=== PATIENT | male | born 1955 | race Caucasian/White ===

== ENCOUNTER → 2018-04-28 09:59 | Outpatient (CLI) | payer OTHER, SELFPAY ==
[2018-04-28 11:53] LABS: Triglycerides 230 mg/dL
== END ==
PROVIDERS: Family Provider Student in an Organized Health Care Education/Training Program; PCP Student in an Organized Health Care Education/Training Program; Visit Provider Urology
DX: Z12.5 Encounter for screening for malignant neoplasm of prostate (principal)
CPT/HCPCS: 36415; 84478

== ENCOUNTER → 2018-12-02 08:17 | Outpatient (CLI) | payer OTHER, SELFPAY ==
[2018-11-20 14:22] VITALS: BMI 30.1
--- NOTE | 2018-12-02 08:37 | EKG12_ITS ---
Test Reason : HYPERTENSION Blood Pressure : / mmHG Vent. Rate : 070 BPM Atrial Rate : 070 BPM P-R Int : 180 ms QRS Dur : 114 ms QT Int : 398 ms P-R-T Axes : 053 -05 028 degrees QTc Int : 429 ms Normal sinus rhythm Cannot rule out Inferior infarct , age undetermined Abnormal ECG Confirmed by SHANON BALLESTEROS, TRINY ([id number]), design editor CONNER ROCA ([id number]) on 12/05/2018 8:52:59 AM Referred By: Rick Cobos Confirmed By:TRINY CLAUDIO MD
[2018-12-02 09:16] LABS: Absolute Lymphocyte Count 1.41 X10^3/ul (0.83-4.51); Basophil# 0.06 X10^3/uL; Basophil% 1.1 % (0-1); Eosinophil# 0.37 X10^3/uL; Hematocrit 46.1 % (40-54); Hemoglobin 15.4 g/dl (13.0-16.5); Lymphocyte # 1.41 X10^3/ul (4.0); Lymphocyte % 26.7 % (19-41); Mean Corp Hgb Conc 33.4 g/gl (32-36); Mean Corpuscular Volume 92.9 fL (80-94); Mean Platelet Vol. 9.9 fl (6.2-12.0); Monocyte# 0.43 X10^3/uL; Monocyte% 8.1 % (0-10); Neutrophil # 3.01 X10^3/uL (2.7-7.7); Neutrophil % 57.1 % (47-70); Platelet Count 207 K/mm3 (150-450); RBC Distribution Width CV 12.3 % (11.6-14.6); RBC Distribution Width SD 41.1 fl (35.1-43.9); Red Blood Count 4.96 M/mm3 (4.6-6.2); White Blood Count 5.3 K/mm3 (4.4-11.0)
[2018-12-02 09:17] LABS: POSITIVE COUNT NO; POSITIVE DIFFERENTIAL NO; POSITIVE MORPHOLOGY NO
[2018-12-02 09:56] LABS: ALB/GLOB Ratio 1.1 RATIO (0.9-2.4); AST(SGOT) 20 U/L (15-37); Alanine Aminotransfer ALT/SGPT 29 U/L (16-61); Albumin, Serum 3.5 g/dL (3.2-5.0); Alkaline Phosphatase 72 U/L (45-117); Anion Gap 11 (5-15); BUN 23 mg/dL (7-18); BUN/Creat Ratio 20.2 RATIO (10-20); Calcium,Total 8.6 mg/dL (8.5-10.1); Chloride 108 mmol/L (98-107); Cholesterol 188 mg/dL (200); Creatinine, Serum 1.14 mg/dL (0.70-1.30); EST Glomerular Filtration Rate 69 mL/min (>60); Est Glom Filt Rate - Afr Amer 84 mL/min (>60); Globulin 3.3 g/dL (2.2-4.2); Glucose 93 mg/dL (74-106); High Density Lipoprotein 42 mg/dL; PSA,Total - Annual Screen 0.89 ng/mL (0.00-4.00); Protein, Total 6.8 g/dL (6.4-8.2); Sodium Level 146 mmol/L (136-145); Triglycerides 147 mg/dL; Very Low Density Lipoprotein 29 mg/dL (5-40)
== END ==
PROVIDERS: Family Provider Internal Medicine; PCP Internal Medicine; Referring Provider Internal Medicine; Visit Provider Internal Medicine
DX: I10 Essential (primary) hypertension (principal); N40.0 Benign prostatic hyperplasia without lower urinary tract symptoms
CPT/HCPCS: 36415; 80053; 80061; 83036; 84153; 85025; 93005; G0103

== ENCOUNTER → 2020-04-13 08:32 | Outpatient (CLI) | payer OTHER, SELFPAY ==
[2020-04-13 08:02] VITALS: BMI 28.6
[2020-04-13 12:41] LABS: Absolute Lymphocyte Count 1.57 X10^3/uL (0.83-4.51); Absolute Neutrophil Count 3.5 X10^3/uL (2.0-7.7); Basophil# 0.09 X10^3/uL; Basophil% 1.5 % (0-1); Eosinophil# 0.41 X10^3/uL; Eosinophils% 6.7 % (0-5); Hematocrit 46.3 % (40-54); Hemoglobin 15.1 g/dL (13.0-16.5); Lymphocyte # 1.57 X10^3/ul (4.0); Lymphocyte % 25.5 % (19-41); Mean Corp Hgb Conc 32.6 g/dL (32-36); Mean Corpuscular Hgb 31.3 pg (27.0-32.0); Mean Corpuscular Volume 96.1 fL (80-94); Monocyte# 0.53 X10^3/uL; Monocyte% 8.6 % (0-10); NRBC Flagged by Analyzer 0 % (0-5); Neutrophil # 3.53 X10^3/uL (2.7-7.7); Neutrophil % 57.4 % (47-70); Platelet Count 219 K/mm3 (150-450); RBC Distribution Width CV 13.3 % (11.6-14.6); RBC Distribution Width SD 46.9 fl (35.1-43.9); Red Blood Count 4.82 M/mm3 (4.6-6.2); White Blood Count 6.2 K/mm3 (4.4-11.0)
[2020-04-13 13:13] LABS: ALB/GLOB Ratio 1.1 RATIO (0.9-2.4); AST(SGOT) 18 U/L (15-37); Alanine Aminotransfer ALT/SGPT 28 U/L (16-61); Albumin, Serum 3.7 g/dL (3.2-5.0); Alkaline Phosphatase 76 U/L (45-117); Anion Gap 4 (5-15); BUN 22 mg/dL (7-18); Calcium,Total 8.7 mg/dL (8.5-10.1); Chloride 108 mmol/L (98-107); Cholesterol 204 mg/dL (200); Creatinine, Serum 1.05 mg/dL (0.70-1.30); EST Glomerular Filtration Rate 76 mL/min (>60); Est Glom Filt Rate - Afr Amer 92 mL/min (>60); Globulin 3.4 g/dL (2.2-4.2); Glucose 100 mg/dL (74-106); High Density Lipoprotein 35 mg/dL; PSA,Total - Annual Screen 1.41 ng/mL (0.00-4.00); Potassium 4.3 mmol/L (3.5-5.1); Protein, Total 7.1 g/dL (6.4-8.2); Sodium Level 141 mmol/L (136-145); Thyroid Stim Hormone (TSH) 1.85 uIU/mL (0.358-3.74); Triglycerides 303 mg/dL; Very Low Density Lipoprotein 61 mg/dL (5-40)
== END ==
PROVIDERS: PCP Internal Medicine; Referring Provider Nurse Practitioner Family; Visit Provider Nurse Practitioner Family
DX: I10 Essential (primary) hypertension (principal); N40.0 Benign prostatic hyperplasia without lower urinary tract symptoms
CPT/HCPCS: 36415; 80053; 80061; 84153; 84443; 85025; G0103

== ENCOUNTER → 2020-10-07 09:09 | Outpatient (CLI) | payer OTHER, SELFPAY ==
[2020-10-07 08:32] VITALS: BMI 29.1
--- NOTE | 2020-10-07 10:51 | RAD_ITS ---
STUDY: X-RAY CHEST REASON FOR EXAM: Male, 65 years old. cough TECHNIQUE: PA and lateral COMPARISON: 09/30/2012 FINDINGS: The lungs are clear and expanded. There is no demonstrated pleural abnormality. Normal size heart. Normal mediastinum and dany. Normal visualized pulmonary arteries. Normal visualized aortic arch and descending thoracic aorta. Dorsal spine and shoulders demonstrate minor degenerative change Normal visualized ribs, and clavicles. There is no demonstrated abnormality of the visualized soft tissue structures of the upper abdomen. No significant changes since prior exam RAD/Chest PA and Lateral IMPRESSION: No acute cardiopulmonary pathology. Electronically Signed: De Simmons MD at 17:08 EST , Service support ,
[2020-10-07 12:41] LABS: Cholesterol 214 mg/dL (200); High Density Lipoprotein 49 mg/dL; Triglycerides 141 mg/dL; Very Low Density Lipoprotein 28 mg/dL (5-40)
== END ==
PROVIDERS: PCP Internal Medicine; Referring Provider Nurse Practitioner Family; Visit Provider Nurse Practitioner Family
DX: R05 Cough (principal); E78.5 Hyperlipidemia, unspecified
CPT/HCPCS: 36415; 71046; 80061

== ENCOUNTER → 2021-03-07 09:25 | Outpatient (CLI) | payer OTHER, SELFPAY ==
[2021-03-07 08:59] VITALS: BMI 29.1
[2021-03-07 12:31] LABS: Absolute Lymphocyte Count 1.32 X10^3/uL (0.83-4.51); Absolute Neutrophil Count 3.6 X10^3/uL (2.0-7.7); Basophil# 0.07 X10^3/uL; Basophil% 1.2 % (0-1); Eosinophil# 0.28 X10^3/uL; Eosinophils% 4.9 % (0-5); Hematocrit 47.2 % (40-54); Hemoglobin 15.6 g/dL (13.0-16.5); Lymphocyte # 1.32 X10^3/ul (0.83-4.51); Lymphocyte % 23.1 % (19-41); Mean Corp Hgb Conc 33.1 g/dL (32-36); Mean Corpuscular Hgb 30.8 pg (27.0-32.0); Mean Corpuscular Volume 93.3 fL (80-94); Mean Platelet Vol. 9.9 fl (6.2-12.0); Monocyte# 0.47 X10^3/uL; Monocyte% 8.2 % (0-10); NRBC Flagged by Analyzer 0 % (0-5); Neutrophil # 3.57 X10^3/uL (2.7-7.7); Neutrophil % 62.4 % (47-70); Platelet Count 260 K/mm3 (150-450); RBC Distribution Width CV 12.8 % (11.6-14.6); RBC Distribution Width SD 43.9 fl (35.1-43.9); Red Blood Count 5.06 M/mm3 (4.6-6.2); White Blood Count 5.7 K/mm3 (4.4-11.0)
[2021-03-07 12:46] LABS: ALB/GLOB Ratio 1.1 RATIO (0.9-2.4); AST(SGOT) 19 U/L (15-37); Alanine Aminotransfer ALT/SGPT 26 U/L (16-61); Albumin, Serum 3.8 g/dL (3.2-5.0); Alkaline Phosphatase 82 U/L (45-117); Anion Gap 4 (5-15); BUN 20 mg/dL (7-18); BUN/Creat Ratio 18.9 RATIO (10-20); Calcium,Total 9.7 mg/dL (8.5-10.1); Chloride 107 mmol/L (98-107); Creatinine, Serum 1.06 mg/dL (0.70-1.30); EST Glomerular Filtration Rate 75 mL/min (>60); Est Glom Filt Rate - Afr Amer 91 mL/min (>60); Globulin 3.5 g/dL (2.2-4.2); Glucose 86 mg/dL (74-106); Potassium 4.5 mmol/L (3.5-5.1); Protein, Total 7.3 g/dL (6.4-8.2); Sodium Level 141 mmol/L (136-145)
== END ==
PROVIDERS: PCP Internal Medicine; Referring Provider Internal Medicine; Visit Provider Internal Medicine
DX: I10 Essential (primary) hypertension (principal)
CPT/HCPCS: 36415; 80053; 85025

== ENCOUNTER → 2021-07-31 09:53 | Outpatient (CLI) | payer OTHER, SELFPAY ==
--- NOTE | 2021-07-31 09:56 | EKG12_ITS ---
Test Reason : ROUTINE Blood Pressure : / mmHG Vent. Rate : 071 BPM Atrial Rate : 071 BPM P-R Int : 162 ms QRS Dur : 104 ms QT Int : 388 ms P-R-T Axes : 066 -46 062 degrees QTc Int : 421 ms Normal sinus rhythm Left axis deviation Incomplete right bundle branch block Abnormal ECG Confirmed by JOSS BALLESTEROS, TORREY ([id number]), editorial project manager DELFINO GUEVARA ([id number]) on 08/01/2021 8:15:06 AM Referred By: Rick Cobos Confirmed By:TORREY COREAS MD
== END ==
PROVIDERS: PCP Internal Medicine; Referring Provider Internal Medicine; Visit Provider Internal Medicine
DX: I10 Essential (primary) hypertension (principal)
CPT/HCPCS: 93005

== ENCOUNTER → 2021-08-08 06:33 | Outpatient (CLI) | payer OTHER, SELFPAY ==
--- NOTE | 2021-08-08 11:45 | STRESSREP ---
Stress Test Report Date: 08-08-2021 Procedure: Exercise tolerance test/imaging study Indications: Abnormal ECG; right IVCD Consent: Per the patient Procedure: The patient exercised on a Vijay protocol for 10-minute completing Stage III and 1 minute of Stage IV achieving a peak heart rate of 137 bpm (87% predicted maximal heart rate) with a peak blood pressure 142/70 mmHg and a peak MET capacity of 13 METs. The baseline ECG demonstrated sinus rhythm; right IVCD compatible with an incomplete right bundle branch block. The peak exercise ECG demonstrated somatic/motion artifact with no obvious ECG changes. There was a rare PVC during exercise and recovery. The functional capacity was considered good. There was no complaint of chest discomfort during exercise or recovery. The examination was discontinued secondary to dyspnea. Impression: 1. Technically adequate (percent predicted maximal heart rate greater than 85%) exercise tolerance test 2. Peak exercise ECG somatic/motion artifact with no obvious ECG changes 3. There was a rare PVC during exercise and recovery 4. Nuclear images pending Myocardial perfusion imaging study: Technique: The patient was injected with 14.2 mCi of technetium 99m Cardiolite and subsequently rest SPECT Cardiolite nuclear imaging was obtained in the horizontal long, vertical long, and short axis views. The patient exercised on a Vijay protocol for 10-minute completing Stage III and 1 minute of Stage IV achieving a peak heart rate of 137 bpm (87% predicted maximal heart rate) with a peak blood pressure 142/70 mmHg and a peak MET capacity of 13 METs. The patient was injected with 45 point mCi of technetium 99m Cardiolite and subsequently stress SPECT Cardiolite nuclear imaging was obtained in the horizontal long, vertical long, and short axis views. A gated Cardiolite study at peak stress was obtained. Interpretation: Rest and stress SPECT Cardiolite nuclear imaging status post realignment, normalization, and attenuation correction, demonstrates the appearance of relative uniform tracer uptake and myocardial perfusion appearing within normal limits. There is end systolic thickening and brightening. The gated Cardiolite study demonstrates myocardial thickening and inward wall motion. The reported LVEF is 63%. Impression: 1. Rest and stress SPECT Cardiolite nuclear imaging demonstrate relative uniform tracer uptake and myocardial perfusion appearing within normal limits. 2. The gated Cardiolite study reports an LVEF of 63%. This note was generated with [employer] software. It may contain incorrect words, spelling, and punctuation that were not noted in checking the note before signing.
== END ==
PROVIDERS: PCP Internal Medicine; Referring Provider Internal Medicine; Visit Provider Internal Medicine
DX: R94.31 Abnormal electrocardiogram [ECG] [EKG] (principal); I10 Essential (primary) hypertension
CPT/HCPCS: 78452; 93017; A9500

== ENCOUNTER 2021-11-13 08:47 | Outpatient (CLI) | payer OTHER, SELFPAY ==
[2021-11-13 12:15] LABS: Absolute Lymphocyte Count 1.21 X10^3/uL (0.83-4.51); Absolute Neutrophil Count 3.2 X10^3/uL (2.0-7.7); Basophil# 0.06 X10^3/uL; Basophil% 1.2 % (0-1); Eosinophil# 0.26 X10^3/uL; Eosinophils% 5.1 % (0-5); Hematocrit 44.6 % (40-54); Hemoglobin 15.2 g/dL (13.0-16.5); Lymphocyte # 1.21 X10^3/ul (0.83-4.51); Lymphocyte % 23.7 % (19-41); Mean Corp Hgb Conc 34.1 g/dL (32-36); Mean Corpuscular Hgb 31.5 pg (27.0-32.0); Mean Corpuscular Volume 92.3 fL (80-94); Mean Platelet Vol. 9.7 fl (6.2-12.0); Monocyte# 0.41 X10^3/uL; NRBC Flagged by Analyzer 0 % (0-5); Neutrophil # 3.16 X10^3/uL (2.7-7.7); Neutrophil % 61.8 % (47-70); Platelet Count 243 K/mm3 (150-450); RBC Distribution Width CV 12.9 % (11.6-14.6); RBC Distribution Width SD 43.8 fl (35.1-43.9); Red Blood Count 4.83 M/mm3 (4.6-6.2); White Blood Count 5.1 K/mm3 (4.4-11.0)
[2021-11-13 12:38] LABS: ALB/GLOB Ratio 0.9 RATIO (0.9-2.4); AST(SGOT) 19 U/L (15-37); Alanine Aminotransfer ALT/SGPT 25 U/L (16-61); Albumin, Serum 3.4 g/dL (3.2-5.0); Alkaline Phosphatase 71 U/L (45-117); Anion Gap 4 (5-15); BUN 21 mg/dL (7-18); Calcium,Total 8.7 mg/dL (8.5-10.1); Chloride 109 mmol/L (98-107); Cholesterol 184 mg/dL (200); Creatinine, Serum 1.05 mg/dL (0.70-1.30); EST Glomerular Filtration Rate 76 mL/min (>60); Est Glom Filt Rate - Afr Amer 91 mL/min (>60); Globulin 3.8 g/dL (2.2-4.2); Glucose 99 mg/dL (74-106); High Density Lipoprotein 46 mg/dL; Potassium 3.9 mmol/L (3.5-5.1); Protein, Total 7.2 g/dL (6.4-8.2); Sodium Level 141 mmol/L (136-145); Triglycerides 119 mg/dL; Very Low Density Lipoprotein 24 mg/dL (5-40)
== END 2021-11-13 23:59 | disposition home or self-care (01) ==
LOC: BIMLAB 08:47
PROVIDERS: PCP Internal Medicine; Visit Provider Internal Medicine
DX: I10 Essential (primary) hypertension (principal); E78.5 Hyperlipidemia, unspecified
CPT/HCPCS: 36415; 80053; 80061; 85025

== ENCOUNTER 2022-01-18 22:18 | Emergency (ER) | payer OTHER, SELFPAY ==
[2022-01-18 22:19] VITALS: BP 151/95; PULSE 77; RESP 18; TEMP 36.8; O2SAT 98; BMI 28.5
--- NOTE | 2022-01-18 22:40 | EDS_ITS ---
HPI HPI - GI History of Present Illness Chief Complaint: Foreign Body Narrative Narrative: 66-year-old male presenting with esophageal obstruction. He states he initially ate chicken a few hours ago and felt like it was stuck in the upper part of his throat. He did vomit and was able to get some food out but still feels like he is obstructed. He states that somebody tried to do the Heimlich maneuver on him and this was not successful either. He still feels like it stuck in his epigastrium. He is having difficulty tolerating his own secretions. He is currently spitting in a bag. Patient denies any pain associated with it. He has no history of esophageal obstruction in the past. [facility] Medical History Abnormal EKG Flu vaccine need Hyperlipidemia Hypertension Routine adult health maintenance Home Medications aspirin 81 mg PO QHS 01/10/17 [History Last Taken 01/09/17] tamsulosin 0.8 mg PO QHS 01/10/17 [History Last Taken 01/09/17] ascorbic acid (vitamin C) 500 mg capsule mg PO cap 11/20/18 [History Last Taken Unknown] coenzyme Q10 100 mg capsule 100 mg PO DAILY 11/20/18 [History Last Taken Unknown] multivitamin 1 cap PO DAILY 11/20/18 [History Last Taken Unknown] prasterone (dhea) 25 mg tablet 25 mg PO DAILY 11/20/18 [History Last Taken Unknown] saw palmetto 1,000 mg capsule 1,000 mg PO DAILY 11/20/18 [History Last Taken Unknown] amlodipine 10 mg tablet 10 mg PO DAILY #90 tab 09/01/21 [Rx Last Taken Unknown] montelukast 10 mg tablet 10 mg PO QHS #90 tab 09/01/21 [Rx Last Taken Unknown] pantoprazole [Protonix] 40 mg PO DAILY #30 tab 01/19/22 [Rx Last Taken Unknown] Allergy/AdvReac Type Severity Reaction Status Date / Time No Known Allergies Allergy Verified 01/18/22 22:20 Family History Mother Arthritis Father Heart disease Hypertension Cancer skin Grandmother CVA (cerebral vascular accident) Surgical History History of orthopedic surgery Social History Smoking Status: Never smoker alcohol intake: current alcohol intake frequency: holidays/special occasions only substance use type: does not use frequency: 3-4 times per week ROS ROS ED Constitutional Constitutional ED: Denies chills or fever(s) ENT ENT ED: Denies rhinorrhea or sore throat Cardiovascular Cardiovascular: Denies chest pain or palpitations Respiratory/Chest Respiratory/Chest: Denies cough or dyspnea Gastrointestinal Gastrointestinal: Reports nausea, vomiting and other Details: Foreign body sensation in throat and ; Denies abdominal pain Genitourinary Genitourinary ED: Denies dysuria or hematuria Musculoskeletal Musculoskeletal: Denies arthralgias or myalgias Integumentary Denies Abrasions or rash Neurologic Neurologic: Denies headache(s) or weakness Psychiatric Psychiatric: Denies anxiety or depression EXAM Physical Exam Const Vital Signs: 01/18/22 22:19 01/18/22 22:37 01/19/22 00:21 Temperature 98.3 F Temperature Source Temporal Pulse Rate 77 89 Pulse Rate [1 (Initial Baseline)] Pulse Rate [10] Pulse Rate [11] Pulse Rate [12] Pulse Rate [13] Pulse Rate [14] Pulse Rate [15] Pulse Rate [16] Pulse Rate [17] Pulse Rate [18] Pulse Rate [4] Pulse Rate [5] Pulse Rate [7] Pulse Rate [8] Pulse Rate [9] Respiratory Rate 18 20 H Respiratory Rate [1 (Initial Baseline)] Respiratory Rate [10] Respiratory Rate [11] Respiratory Rate [12] Respiratory Rate [13] Respiratory Rate [14] Respiratory Rate [15] Respiratory Rate [16] Respiratory Rate [17] Respiratory Rate [18] Respiratory Rate [4] Respiratory Rate [5] Respiratory Rate [7] Respiratory Rate [8] Respiratory Effort Normal Respiratory Pattern Normal Blood Pressure 151/95 H 146/91 H Blood Pressure [1 (Initial Baseline)] Blood Pressure [12] Blood Pressure [14] Blood Pressure [4] Blood Pressure [5] Blood Pressure [8] Blood Pressure Mean 113 109 Pulse Ox 98 97 Oxygen Delivery Method Room Air Room Air Oxygen Delivery Method [1 (Initial Baseline)] Oxygen Delivery Method [10] Oxygen Delivery Method [12] Oxygen Delivery Method [13] Oxygen Delivery Method [14] Oxygen Delivery Method [15] Oxygen Delivery Method [16] Oxygen Delivery Method [17] Oxygen Delivery Method [4] Oxygen Delivery Method [5] Oxygen Delivery Method [7] Oxygen Delivery Method [8] Oxygen Flow Rate (L/min) Oxygen Flow Rate (L/min) [1 (Initial Baseline)] Oxygen Flow Rate (L/min) [10] Oxygen Flow Rate (L/min) [12] Oxygen Flow Rate (L/min) [13] Oxygen Flow Rate (L/min) [14] Oxygen Flow Rate (L/min) [15] Oxygen Flow Rate (L/min) [16] Oxygen Flow Rate (L/min) [17] Oxygen Flow Rate (L/min) [4] Oxygen Flow Rate (L/min) [5] Oxygen Flow Rate (L/min) [7] Oxygen Flow Rate (L/min) [8] 01/19/22 01:14 01/19/22 01:34 Temperature Temperature Source Pulse Rate 71 Pulse Rate [1 (Initial Baseline)] 78 Pulse Rate [10] 97 Pulse Rate [11] 90 Pulse Rate [12] 87 Pulse Rate [13] 87 Pulse Rate [14] 88 Pulse Rate [15] 88 Pulse Rate [16] 87 Pulse Rate [17] 87 Pulse Rate [18] 93 Pulse Rate [4] 74 Pulse Rate [5] 109 H Pulse Rate [7] 118 H Pulse Rate [8] 93 Pulse Rate [9] 95 Respiratory Rate 15 Respiratory Rate [1 (Initial Baseline)] 12 Respiratory Rate [10] 38 H Respiratory Rate [11] 24 H Respiratory Rate [12] 20 H Respiratory Rate [13] 18 Respiratory Rate [14] 21 H Respiratory Rate [15] 23 H Respiratory Rate [16] 21 H Respiratory Rate [17] 30 H Respiratory Rate [18] 29 H Respiratory Rate [4] 10 L Respiratory Rate [5] 21 H Respiratory Rate [7] 21 H Respiratory Rate [8] 27 H Respiratory Effort Respiratory Pattern Blood Pressure 153/93 H Blood Pressure [1 (Initial Baseline)] 160/92 H Blood Pressure [12] 141/86 H Blood Pressure [14] 150/89 H Blood Pressure [4] 130/89 H Blood Pressure [5] 180/108 H Blood Pressure [8] 178/108 H Blood Pressure Mean Pulse Ox 97 Oxygen Delivery Method Nasal Cannula Oxygen Delivery Method [1 (Initial Baseline)] Nasal Cannula Oxygen Delivery Method [10] Nasal Cannula Oxygen Delivery Method [12] Nasal Cannula Oxygen Delivery Method [13] Nasal Cannula Oxygen Delivery Method [14] Nasal Cannula Oxygen Delivery Method [15] Nasal Cannula Oxygen Delivery Method [16] Nasal Cannula Oxygen Delivery Method [17] Nasal Cannula Oxygen Delivery Method [4] Nasal Cannula Oxygen Delivery Method [5] Nasal Cannula Oxygen Delivery Method [7] Nasal Cannula Oxygen Delivery Method [8] Nasal Cannula Oxygen Flow Rate (L/min) 2 Oxygen Flow Rate (L/min) [1 (Initial Baseline)] 2 Oxygen Flow Rate (L/min) [10] 2 Oxygen Flow Rate (L/min) [12] 2 Oxygen Flow Rate (L/min) [13] 2 Oxygen Flow Rate (L/min) [14] 2 Oxygen Flow Rate (L/min) [15] 2 Oxygen Flow Rate (L/min) [16] 2 Oxygen Flow Rate (L/min) [17] 2 Oxygen Flow Rate (L/min) [4] 2 Oxygen Flow Rate (L/min) [5] 2 Oxygen Flow Rate (L/min) [7] 2 Oxygen Flow Rate (L/min) [8] 2 Positive well nourished General Appearance ED: NAD; Negative for pallor HEENT Reports moist mucous membranes normocephalic and atraumatic Eyes PERRL and EOMs intact bilaterally Resp normal respiratory effort and clear to auscultation bilaterally Cardio regular rate and no murmurs GI non-tender and non-distended Palpation: soft Neuro Sensorium / Orientation: alert, oriented to person, oriented to place and oriented to time Psych mental status grossly normal and thought process normal Skin General Skin Exam: Negative for jaundice or pallor MDM MDM MDM Narrative Medical decision making narrative: Presents with foreign body in esophagus. Glucagon was given without success. Patient having difficulty swallowing sec retions. Discussed with Dr. Rodriguez who will come in to do EGD. Patient consented for propofol sedation. He will be placed on the monitor, pulse oximetry. Patient sedated with propofol and required 300 cc of propofol for conscious sedation which were given as doses of 20 mg over the course of 35 minutes with a total conscious sedation time of [address] Rodriguez required multiple attempts to remove multiple pieces of chicken from the patient's esophagus. Patient's vital signs remained stable on the monitor. Patient tolerated the procedure well. He was monitored in telemetry back to baseline. Dr. Rodriguez recommended placing patient on Protonix he will be given follow-up with Dr. Rodriguez. Patient discharged home in stable condition. Impression: 1. Esophageal foreign body?removed Critical Care Time Critical care time (excluding procedures): 30-74 minutes (35), Discussing w/Patient &/or Family/[employer]ark Paralegal, Discussing w/Consultants and Performing Direct Patient Care at Bedside Discharge Plan Triage Chief Complaint: Foreign Body ED Provider: Dimitris Giordano Dx/Rx/DC Orders Instructions: ED Esophageal Foreign Body, Resolved Prescriptions: New pantoprazole [Protonix] 40 mg tablet,delayed release (DR/EC) 40 mg PO DAILY Qty: 30 RF: 0 No Action ascorbic acid (vitamin C) 500 mg capsule PO RF: 0 saw palmetto 1,000 mg capsule 1,000 mg capsule 1,000 mg PO DAILY RF: 0 multivitamin capsule capsule 1 cap PO DAILY RF: 0 coenzyme Q10 [Co Q-10] 100 mg capsule 100 mg PO DAILY RF: 0 DHEA 25 mg tablet 25 mg PO DAILY RF: 0 tamsulosin 0.4 MG capsule 0.8 mg PO QHS RF: 0 aspirin 81 MG tablet,chewable 81 mg PO QHS RF: 0 amlodipine 10 mg tablet 10 mg PO DAILY Qty: 90 RF: 3 montelukast 10 mg tablet 10 mg PO QHS Qty: 90 RF: 3 Primary Care Provider: Rick Cobos Referrals: Rick Cobos MD [Primary Care Provider] - Carroll Rodriguez DO [STAFF PHYSICIAN] - 3-5 Days Disposition Disposition: Home, Self Care
[2022-01-18] MEDS: Glucagon 1 MG/ML Syringe IV (22:51)
[2022-01-19] VITALS (8 sets, daily range): BP systolic 125–180; BP diastolic 78–108; PULSE 71–118; RESP 10–38; O2SAT 90–99
[2022-01-19] MEDS: 0.9% Normal Saline 1,000 ML 999 ML IV (01:30)
--- NOTE | 2022-01-19 01:30 | PCM.HP.BLA ---
History and Physical Date [facility] Ad[facility]: [facility] [id number] [place] [address] Rcixopdrnpge53/29/22 0212MR#: [id number]:[id number]:AGNES RAMON [facility] #:[id number]: [id number]: Carroll Friend DOPCP:Dr. Rick Cobos MD Status:REG ERLocation: ED Assessment & Plan Assessment/Plan (1) Esophageal foreign body: PLAN: He will need to undergo emergent upper endoscopy with foreign body removal. Patient was explained alternatives risk, benefits including not withstanding bleeding, infection, sepsis, perforation, need for emergent surgery . He will have an ASA 1. HPI Consult Data Date of Consult: 01/19/22 HPI Narrative HPI Narrative: AGNES RAMON, is a 66 M who presents to the ED after getting food stuck in his esophagus and having the Heimlich maneuver performed. He states he initially ate chicken a few hours ago and felt like it was stuck in the upper part of his throat. He did vomit and was able to get some food out but still feels like he is obstructed. He states that somebody tried to do the Heimlich maneuver on him and this was not successful either. He still feels like it stuck in his epigastrium. He is having difficulty tolerating his own secretions. He is currently spitting in a bag. Patient denies any pain associated with it. He has no history of esophageal obstruction in the past. [facility] Medical History Abnormal EKG Flu vaccine need Hyperlipidemia Hypertension Routine adult health maintenance Home Medications aspirin 81 mg PO QHS 01/10/17 [History Last Taken 01/09/17] tamsulosin 0.8 mg PO QHS 01/10/17 [History Last Taken 01/09/17] ascorbic acid (vitamin C) 500 mg capsule mg PO cap 11/20/18 [History Last Taken Unknown] coenzyme Q10 100 mg capsule 100 mg PO DAILY 11/20/18 [History Last Taken Unknown] multivitamin 1 cap PO DAILY 11/20/18 [History Last Taken Unknown] prasterone (dhea) 25 mg tablet 25 mg PO DAILY 11/20/18 [History Last Taken Unknown] saw palmetto 1,000 mg capsule 1,000 mg PO DAILY 11/20/18 [History Last Taken Unknown] amlodipine 10 mg tablet 10 mg PO DAILY #90 tab 09/01/21 [Rx Last Taken Unknown] montelukast 10 mg tablet 10 mg PO QHS #90 tab 09/01/21 [Rx Last Taken Unknown] pantoprazole [Protonix] 40 mg PO DAILY #30 tab 01/19/22 [Rx Last Taken Unknown] Allergy/AdvReac Type Severity Reaction Status Date / Time No Known Allergies Allergy Verified 01/18/22 22:20 Family History Mother Arthritis Father Heart disease Hypertension Cancer skin Grandmother CVA (cerebral vascular accident) Surgical History History of orthopedic surgery Social History Smoking Status: Never smoker alcohol intake: current alcohol intake frequency: holidays/special occasions only substance use type: does not use frequency: 3-4 times per week ROS Gastrointestinal Gastrointestinal: Reports dysphagia Physical Exam Const alert General Appearance: cooperative Orientation / Consciousness: oriented to person HEENT hearing grossly normal bilaterally Head and Scalp: normal to inspection Face and Sinus: face symmetric Nose: external nose normal Mouth: oral and palatal mucosa normal Eyes conjunctivae normal General Eye: normal appearance of both eyes Neck full ROM General: normal visual inspection Lymph Lymphatic: no lymphadenopathy noted Chest inspection of chest normal and palpation of chest normal Chest: symmetrical chest wall rise Resp normal respiratory effort Effort and Inspection: able to speak in complete sentences Cardio regular rate GI non-distended Percussion: normal to percussion Rectal Exam: deferred Neuro Speech: speech normal Gait (Neuro): normal gait
--- NOTE | 2022-01-19 02:12 | PCM.CONS.GEN ---
Assessment & Plan Assessment/Plan (1) Esophageal foreign body: PLAN: He will need to undergo emergent upper endoscopy with foreign body removal. Patient was explained alternatives risk, benefits including not withstanding bleeding, infection, sepsis, perforation, need for emergent surgery . He will have an ASA 1. HPI Consult Data Date of Consult: 01/19/22 HPI Narrative HPI Narrative: AGNES RAMON, is a 66 M who presents to the ED after getting food stuck in his esophagus and having the Heimlich maneuver performed. He states he initially ate chicken a few hours ago and felt like it was stuck in the upper part of his throat. He did vomit and was able to get some food out but still feels like he is obstructed. He states that somebody tried to do the Heimlich maneuver on him and this was not successful either. He still feels like it stuck in his epigastrium. He is having difficulty tolerating his own secretions. He is currently spitting in a bag. Patient denies any pain associated with it. He has no history of esophageal obstruction in the past. [facility] Medical History Abnormal EKG Flu vaccine need Hyperlipidemia Hypertension Routine adult health maintenance Home Medications aspirin 81 mg PO QHS 01/10/17 [History Last Taken 01/09/17] tamsulosin 0.8 mg PO QHS 01/10/17 [History Last Taken 01/09/17] ascorbic acid (vitamin C) 500 mg capsule mg PO cap 11/20/18 [History Last Taken Unknown] coenzyme Q10 100 mg capsule 100 mg PO DAILY 11/20/18 [History Last Taken Unknown] multivitamin 1 cap PO DAILY 11/20/18 [History Last Taken Unknown] prasterone (dhea) 25 mg tablet 25 mg PO DAILY 11/20/18 [History Last Taken Unknown] saw palmetto 1,000 mg capsule 1,000 mg PO DAILY 11/20/18 [History Last Taken Unknown] amlodipine 10 mg tablet 10 mg PO DAILY #90 tab 09/01/21 [Rx Last Taken Unknown] montelukast 10 mg tablet 10 mg PO QHS #90 tab 09/01/21 [Rx Last Taken Unknown] pantoprazole [Protonix] 40 mg PO DAILY #30 tab 01/19/22 [Rx Last Taken Unknown] Allergy/AdvReac Type Severity Reaction Status Date / Time No Known Allergies Allergy Verified 01/18/22 22:20 Family History Mother Arthritis Father Heart disease Hypertension Cancer skin Grandmother CVA (cerebral vascular accident) Surgical History History of orthopedic surgery Social History Smoking Status: Never smoker alcohol intake: current alcohol intake frequency: holidays/special occasions only substance use type: does not use frequency: 3-4 times per week ROS Gastrointestinal Gastrointestinal: Reports dysphagia Physical Exam Const alert General Appearance: cooperative Orientation / Consciousness: oriented to person HEENT hearing grossly normal bilaterally Head and Scalp: normal to inspection Face and Sinus: face symmetric Nose: external nose normal Mouth: oral and palatal mucosa normal Eyes conjunctivae normal General Eye: normal appearance of both eyes Neck full ROM General: normal visual inspection Lymph Lymphatic: no lymphadenopathy noted Chest inspection of chest normal and palpation of chest normal Chest: symmetrical chest wall rise Resp normal respiratory effort Effort and Inspection: able to speak in complete sentences Cardio regular rate GI non-distended Percussion: normal to percussion Rectal Exam: deferred Neuro Speech: speech normal Gait (Neuro): normal gait Charges/Coding Visit Charges Inpatient E&M: 21741 Init Hosp L2
[2022-01-19] MEDS: Propofol 200 MG/20 ML Vial IV BOLUS (02:32)
--- NOTE | 2022-06-21 06:24 | OP.EGD_ITS ---
Patient Name: Johnny Thomson Procedure Date: 01/19/2022 1:16 AM Date of : 1955 Age: 66 Procedure: Upper GI endoscopy Indications: Dysphagia Providers: Carroll Rodriguez DO Medicines: Monitored Anesthesia Care Patient Profile: This is a 66 year old male. Refer to note in patient chart for documentation of history and physical. Patient has symptoms of acute dysphagia. Complications: No immediate complications. Procedure: Pre-Anesthesia Assessment: - Prior to the procedure, a History and Physical was performed, and patient medications and allergies were reviewed. The patient is competent. The risks and benefits of the procedure and the sedation options and risks were discussed with the patient. All questions were answered and informed consent was obtained. Patient identification and proposed procedure were verified by the physician in the pre-procedure area. Mental Status Examination: alert and oriented. Airway Examination: normal oropharyngeal airway and neck mobility. Respiratory Examination: clear to auscultation. CV Examination: normal. Prophylactic Antibiotics: The patient does not require prophylactic antibiotics. Prior Anticoagulants: The patient has taken no previous anticoagulant or antiplatelet agents. ASA Grade Assessment: II - A patient with mild systemic disease. After reviewing the risks and benefits, the patient was deemed in satisfactory condition to undergo the procedure. The anesthesia plan was to use moderate sedation / analgesia (conscious sedation). Immediately prior to administration of medications, the patient was re-assessed for adequacy to receive sedatives. The heart rate, respiratory rate, oxygen saturations, blood pressure, adequacy of pulmonary ventilation, and response to care were monitored throughout the procedure. The physical status of the patient was re-assessed after the procedure. After obtaining informed consent, the endoscope was passed under direct vision. Throughout the procedure, the patient's blood pressure, pulse, and oxygen saturations were monitored continuously. The gastroscope was introduced through the mouth, and advanced to the second part of duodenum. The gastroscope was introduced through the mouth, and advanced to the second part of duodenum. The upper GI endoscopy was accomplished without difficulty. The patient tolerated the procedure well. Moderate Sedation: Moderate (conscious) sedation was administered by the endoscopy nurse and supervised by the endoscopist. The patient's oxygen saturation, heart rate, blood pressure and response to care were monitored. Total physician intraservice time was 15 minutes. Scope In: Scope Out: 2:05:44 AM Findings: Food was found in the entire esophagus. Removal of food was accomplished. Verification of patient identification for the specimen was done. Estimated blood loss was minimal. A severe Schatzki ring was found in the lower third of the esophagus. A guidewire was placed and the scope was withdrawn. Dilation was performed with a Savary dilator with no resistance at 33 Fr. The dilation site was examined following endoscope reinsertion and showed moderate improvement in luminal narrowing. Estimated blood loss was minimal. The entire examined stomach was normal. A large amount of a trichobezoar was found in the cardia, in the gastric fundus, in the gastric body and on the anterior wall of the stomach. The duodenal bulb was normal. Impression: - Food in the esophagus. Removal was successful. - Severe Schatzki ring. Dilated. - Normal stomach. - A large amount of a trichobezoar in the stomach. - Normal duodenal bulb. Recommendation: - Discharge patient to home. - Clear liquid diet for 12 hours. - Use Protonix (pantoprazole) 40 mg PO daily for the rest of the patient's life. - Continue present medications. Procedure Code(s): --- Professional --- 70144, Esophagogastroduodenoscopy, flexible, transoral; with removal of foreign body(s) 79855, Esophagogastroduodenoscopy, flexible, transoral; with insertion of guide wire followed by passage of dilator(s) through esophagus over guide wire 66431, 59, Moderate sedation services provided by the same physician or other qualified health rn urgent care performing the diagnostic or therapeutic service that the sedation supports, requiring the presence of an independent trained observer to assist in the monitoring of the patient's level of consciousness and physiological status; initial 15 minutes of intraservice time, patient age 5 years or older CPT copyright 2017 [employer]. All rights reserved. The codes documented in this report are preliminary and upon photograph inspector review may be revised to meet current compliance requirements. Carroll Rodriguez DO 01/19/2022 2:20:24 AM This report has been signed electronically. Number of Addenda: 1 Note Initiated On: 01/19/2022 1:16 AM Addendum Number: 1 Addendum Date: 06/21/2022 6:22:47 AM MAC was used as sedation for this procedure. Carroll Rodriguez DO 06/21/2022 6:22:55 AM This report has been signed electronically.
== END 2022-01-19 03:09 | disposition home or self-care (01) ==
PROVIDERS: Internal Medicine Gastroenterology; Emergency Provider Student in an Organized Health Care Education/Training Program; PCP Internal Medicine; Visit Provider Student in an Organized Health Care Education/Training Program
PROC: 0DJ08ZZ Inspection of Upper Intestinal Tract, Via Natural or Artificial Opening Endoscopic (ICD-10-PCS; CPT 43235; principal; 2022-01-19 01:35)
DX: K22.2 Esophageal obstruction (principal); T18.108A Unspecified foreign body in esophagus causing other injury, initial encounter; R11.10 Vomiting, unspecified; Z79.82 Long term (current) use of aspirin; R13.10 Dysphagia, unspecified; I10 Essential (primary) hypertension; E78.5 Hyperlipidemia, unspecified
CPT/HCPCS: 43247; 43248; 96361; 96365; 96375; 99152; 99153; 99283; J7030; A4216; J1610

== ENCOUNTER → 2022-04-13 | Outpatient (CLI) | payer OTHER, SELFPAY ==
--- NOTE | 2022-04-13 12:45 | ECHOD_ITS ---
Reason For Study: ARRYTHMIA Procedure This was a 2D Doppler, Color Flow transthoracic echocardiogram. The exam was of adequate technical quality. Exam performed in department. Left Ventricle Normal LV size. Left ventricular systolic function is normal. The estimated ejection fraction is 60 %. Diastolic function is indeterminate. No regional wall motion abnormalities noted. Right Ventricle Normal RV size. Normal systolic function. Atria The left atrium is mildly enlarged. Normal right atrium. No doppler evidence for ASD. Mitral Valve There is no mitral annular calcification. Normal mitral valve. Trivial mitral valve insufficiency. Tricuspid Valve Normal tricuspid valve. Trivial tricuspid valve insufficiency. Unable to estimate RV systolic pressure due to insufficient tricuspid regurgitant envelope. Aortic Valve Trisinus/trileaflet aortic valve. Mild focal aortic valve calcification. Pulmonic Valve The pulmonic valve is not well visualized. Trivial pulmonic valve insufficiency. Great Vessels Normal sized aortic root. Pericardium/Pleural No pericardial effusion. MMode/2D Measurements & Calculations LVIDd: 5.1 cm IVSd: 1.3 cm Ao root diam: 3.2 cm LVIDs: 2.5 cm LVPWd: 1.0 cm RVDd: 3.6 cm FS: 50.2 % LAV(MOD-bp): 83.9 ml LVAd ap4: 30.5 cm2 LVAd ap2: 29.0 cm2 LAV(MOD-bp) Indexed: 38.5 ml/m2 LVLd ap4: 9.0 cm LVLd ap2: 7.8 cm LAV(MOD-sp2): 72.0 ml EDV(MOD-sp4): 91.8 ml EDV(MOD-sp2): 90.3 ml LAV(MOD-sp4): 81.2 ml EDV(sp4-el): 88.0 ml EDV(sp2-el): 91.4 ml LVAs ap4: 17.2 cm2 LVAs ap2: 17.6 cm2 LVLs ap4: 7.4 cm LVLs ap2: 6.9 cm ESV(MOD-sp4): 38.0 ml ESV(MOD-sp2): 39.1 ml ESV(sp4-el): 33.6 ml ESV(sp2-el): 37.9 ml EF(MOD-sp4): 58.6 % EF(MOD-sp2): 56.8 % EF(sp4-el): 61.8 % SV(MOD-sp4): 53.8 ml SV(MOD-sp2): 51.3 ml SV(sp4-el): 54.3 ml LA dimension(2D): 3.9 cm LA A4 area: 25.4 cm2 RA A4 area: 18.4 cm2 Time Measurements MV dec time: 0.29 sec Doppler Measurements & Calculations MV E max micah: 53.8 cm/sec Lat Peak E' Micah: 10.8 cm/sec Med Peak E' Micah: 10.8 cm/sec MV A max micah: 69.4 cm/sec E/E' lat: 5.0 E/E' med: 5.0 MV E/A: 0.77 MV V2 max: 76.5 cm/sec MV dec slope: 220.5 cm/sec2 Ao V2 max: 163.5 cm/sec MV max P.4 mmHg Ao max P.7 mmHg MV V2 mean: 43.4 cm/sec Ao V2 mean: 111.3 cm/sec MV mean P.89 mmHg Ao mean P.7 mmHg MV V2 VTI: 22.5 cm Ao V2 VTI: 32.3 cm LV V1 max: 118.0 cm/sec PA V2 max: 122.4 cm/sec LV V1 max P.6 mmHg PA V2 mean: 79.9 cm/sec LV V1 mean P.9 mmHg LV V1 mean: 79.2 cm/sec LV V1 VTI: 22.7 cm ECHO/Echo Complete Interpretation Summary Left ventricular systolic function is normal. The estimated ejection fraction is 60 %. The left atrium is mildly enlarged. Trivial mitral valve insufficiency. Trivial tricuspid valve insufficiency. Mild focal aortic valve calcification. Trivial pulmonic valve insufficiency. Unable to estimate RV systolic pressure due to insufficient tricuspid regurgita nt envelope. Diastolic function is indeterminate. Ordering Physician: Sherif Buchanan Referring Physician: Rick Cobos Performed By: Carmen Jang RCS
== END | disposition home or self-care (01) ==
PROVIDERS: PCP Internal Medicine; Visit Provider Internal Medicine Cardiovascular Disease
DX: Z01.810 Encounter for preprocedural cardiovascular examination (principal); I49.8 Other specified cardiac arrhythmias; R94.31 Abnormal electrocardiogram [ECG] [EKG]; E78.2 Mixed hyperlipidemia; I10 Essential (primary) hypertension
CPT/HCPCS: 93306

== ENCOUNTER → 2022-04-20 | Outpatient (CLI) | payer OTHER, SELFPAY | END | disposition home or self-care (01) | PROVIDERS: PCP Internal Medicine; Referring Provider Internal Medicine Cardiovascular Disease; Visit Provider Internal Medicine Cardiovascular Disease | DX: Z01.810 Encounter for preprocedural cardiovascular examination (principal); I49.8 Other specified cardiac arrhythmias; R94.31 Abnormal electrocardiogram [ECG] [EKG]; E78.2 Mixed hyperlipidemia; I10 Essential (primary) hypertension | CPT/HCPCS: 93225; 93226 ==

== ENCOUNTER 2022-05-09 15:15 | Observation (INO) | payer OTHER, SELFPAY ==
--- NOTE | 2022-04-05 15:46 | EKG12_ITS ---
Test Reason : PREOP Blood Pressure : / mmHG Vent. Rate : 073 BPM Atrial Rate : 073 BPM P-R Int : 156 ms QRS Dur : 104 ms QT Int : 404 ms P-R-T Axes : 060 -45 039 degrees QTc Int : 445 ms Sinus rhythm with frequent Premature ventricular complexes in a pattern of bigeminy Left anterior fascicular block Inferior infarct , age undetermined Abnormal ECG Confirmed by SOPHIA BALLESTEROS, DOC ([id number]), slot editor DELFINO GUEVARA ([id number]) on 04/06/2022 10:30:48 A M Referred By: Gregory Shaffer Confirmed By:KAT CORTES MD
[2022-04-05 17:10] LABS: Hematocrit 45.5 % (40-54); Hemoglobin 15.4 g/dL (13.0-16.5); Mean Corp Hgb Conc 33.8 g/dL (32-36); Mean Corpuscular Hgb 30.9 pg (27.0-32.0); Mean Corpuscular Volume 91.4 fL (80-94); Mean Platelet Vol. 9.6 fl (6.2-12.0); Platelet Count 226 K/mm3 (150-450); RBC Distribution Width CV 12.5 % (11.6-14.6); RBC Distribution Width SD 41.7 fl (35.1-43.9); Red Blood Count 4.98 M/mm3 (4.6-6.2); White Blood Count 6.6 K/mm3 (4.4-11.0)
[2022-04-05 17:35] LABS: Anion Gap 7 (5-15); BUN 17 mg/dL (7-18); Calcium,Total 8.9 mg/dL (8.5-10.1); Chloride 108 mmol/L (98-107); Creatinine, Serum 1.21 mg/dL (0.70-1.30); EST Glomerular Filtration Rate 64 mL/min (>60); Est Glom Filt Rate - Afr Amer 78 mL/min (>60); Glucose 123 mg/dL (74-106); Potassium 3.6 mmol/L (3.5-5.1); Sodium Level 141 mmol/L (136-145)
[2022-05-09] VITALS (10 sets, daily range): BP systolic 108–140; BP diastolic 65–90; PULSE 17–82; RESP 12–73; TEMP 36.2–36.9; O2SAT 92–98; BMI 28.7
--- NOTE | 2022-05-09 | PROS_PTH ---
PATIENT: AGNES RAMON LOC: [facility] U#:[id number] AGE/SX: 66/M ROOM: [facility]319 RE05/09/[address]: Dr. Gregory Shaffer MD : 1955 BED: 1 DIS: 05/10/2022 SPEC #: [id number] RECD: 05/09/22 16:59 STATUS: JENNIFER BAUER #: [id number] MICHAEL: 05/09/22 00:[address]: Gregory Shaffer DEPT: SURGICAL PATHOLOGY RECD BY: Enoch Kirk ENTERED: 05/10/22 08:54 SP TYPE: TURP OTHR DR: Dr. Rick Cobos MD Tissues: Prostate, NOS Procedures: Surgery Specimen Level IV HEADER OPERATION: Cysto, TUR, prostate, olympus PRE-OP DIAGNOSIS: Benign prostatic hypertrophy TISSUE SUBMITTED: Prostate chips MICROSCOPIC DIAGNOSIS Prostate, transurethral resection: Benign nodular hyperplasia. Mild chronic inflammation. AM:am 05/11/2022 MICROSCOPIC DESCRIPTION Slides are reviewed. GROSS DESCRIPTION Received is one container labeled with the patient's name and designated prostate tissue. The specimen consists of multiple irregular fragments of pink-fowler, rubbery, soft tissue that in aggregate weigh 6.2 gm and measure in aggregate 5 x 4.5 x 2 cm. The entire specimen is submitted in 6 cassettes. /SJ:amina 05/10/22 TC:3 CPT: 45645
[2022-05-09] MEDS: Lactated Ringers 1,000 ML 15 ML IV ×3 (11:00→14:28)
[2022-05-09] MEDS: Cefazolin 2 GM in 0.9% Normal Saline 100 ML IV (12:56)
--- NOTE | 2022-05-09 12:56 | DCINST_ITS ---
Discharge Instructions Diet Discharge Diet: No restrictions, Light diet - advance as tolerated and Soft diet Activity Discharge Activity: May Not Drive Additional Activity Instructions:: no lifting x 2 -3 weeks Follow Up Care Please Follow Up With: Gregory Shaffer MD When: 2 weeks, call for appt Test Results: Test results from this visit will be discussed in further detail at your follow- up appointment, if applicable. Discharge Plan Admission Primary Reason for Your Visit: KEI Attending Provider: Gregory Shaffer Primary Care Provider: Rick Cobos Instructions Patient Instructions: TUR Home Recovery Discharge Orders/Prescriptions Prescriptions: Continued coenzyme Q10 [Co Q-10] 100 mg capsule 100 mg PO QHS ascorbic acid (vitamin C) 500 mg capsule 1,000 mg PO QHS tamsulosin 0.4 mg capsule 0.8 mg PO QHS turmeric root extract 500 mg tablet 500 mg PO DAILY calcium carb-mag ox-zinc sulf 333-133-5 mg tablet 1 tab PO DAILY Rx Instructions: administer with a meal omega-3 fatty acids 1,000 mg capsule 1,000 mg PO DAILY Centrum Silver Ultra Men's 300-600-300 mcg tablet 1 tab PO DAILY vitamin B complex [B Complex-Vitamin B12] Tablet 1 tab PO DAILY amlodipine 10 mg tablet 10 mg PO QHS pantoprazole [Protonix] 40 mg tablet,delayed release (DR/EC) 40 mg PO QHS montelukast 10 mg tablet 10 mg PO QHS Qty: 90 3RF Held Eliquis 5 mg tablet 5 mg PO BID Qty: 60 12RF Hold Instructions: Resume on 05/23/22. Referrals / Follow Up: Rick Cobos MD [Primary Care Provider] - Gregory Shaffer MD [Med Staff - Active Staff] - Disposition Disposition (needs filled in before D/C Order can be placed): Home, Self Care
--- NOTE | 2022-05-09 12:56 | PCM.HP.STD ---
HPI - General HPI Narrative AGNES RAMON, is a 66 M who presents for a TURP pt has BPH with obstruction. [facility] Medical History Alcohol use Back pain Cardiology follow-up encounter Flu vaccine need Gastric reflux History of atrial fibrillation History of echocardiogram History of stress test History of TIA (transient ischemic attack) (01/10/17) Hyperlipidemia Hypertension Non-smoker Prostate disease Routine adult health maintenance TIA (transient ischemic attack) Home Medications coenzyme Q10 100 mg capsule (Co Q-10) 100 mg PO QHS 11/20/18 [History Last Taken Unknown] montelukast 10 mg tablet 10 mg PO QHS #90 tabs 09/01/21 [Rx Last Taken Unknown] amlodipine 10 mg tablet 10 mg PO QHS 04/05/22 [History Last Taken Unknown] pantoprazole 40 mg tablet,delayed release (Protonix) 40 mg PO QHS 04/05/22 [History Last Taken Unknown] ascorbic acid (vitamin C) 500 mg capsule 1,000 mg PO QHS 04/10/22 [History Last Taken Unknown] calcium carbonate 333 mg-magnesium oxide 133 mg-zinc sulf 5 mg tablet 1 tab PO DAILY 04/10/22 [History Last Taken Unknown] ctxpzkvf-kox-pskwe acid 300 mcg-lycopene 600 mcg-lutein 300 mcg tablet (Centrum Silver Ultra Men's) 1 tab PO DAILY 04/10/22 [History Last Taken Unknown] omega-3 fatty acids 1,000 mg capsule 1,000 mg PO DAILY 04/10/22 [History Last Taken Unknown] tamsulosin 0.4 mg capsule 0.8 mg PO QHS 04/10/22 [History Last Taken Unknown] turmeric root extract 500 mg tablet 500 mg PO DAILY 04/10/22 [History Last Taken Unknown] vitamin B complex (B Complex-Vitamin B12 tablet) 1 tab PO DAILY 04/10/22 [History Last Taken Unknown] apixaban 5 mg tablet (Eliquis) 5 mg PO BID #60 tabs 04/24/22 [Rx Last Taken 05/05/22] Allergy/AdvReac Type Severity Reaction Status Date / Time No Known Allergies Allergy Verified 05/09/22 11:16 Family History Mother Arthritis Father Heart disease Hypertension Cancer skin Grandmother CVA (cerebral vascular accident) Surgical History History of orthopedic surgery Hx of esophagogastroduodenoscopy Social History Smoking Status: Never smoker alcohol intake: current alcohol intake frequency: holidays/special occasions only substance use type: does not use frequency: 3-4 times per week Vital Signs Vital Signs Vital Signs: 05/09/22 11:17 05/09/22 11:17 Temperature 98.5 F Temperature Source Temporal Pulse Rate 17 L Respiratory Rate 73 H Respiratory Pattern Normal Blood Pressure 140/86 H Blood Pressure Mean 104 Blood Pressure Source Monitor Blood Pressure Position Semi-Fowlers Blood Pressure Location Left Arm Pulse Ox 95 Oxygen Delivery Method Room Air Weight Weight: 96 kg Body Mass Index (BMI) 28.7 Results Lab / Micro Data Result Diagrams: 04/05/22 16:06 04/05/22 16:06
--- NOTE | 2022-05-09 13:41 | PCM.OPRPT ---
Report of Operation Date of Procedure: 05/09/22 Pre-Operative Diagnosis: BPH with obstruction Post-Operative Diagnosis: Same Surgery/Procedure Performed:: Transurethral section of prostate Description of Surgical Findings:: In the preoperative setting I discussed with the patient how the surgery would be done with expect afterwards. We discussed how a prostate resection is done and we discussed the risk of the surgery including, bleeding, infection, retrograde ejaculation, changes with ejaculation or intercourse,. We discussed the possibility that the resection of the prostate may not alleviate his urinary symptoms. We discussed the small risk of developing scar tissue along the urethral channel and strictures. We also discussed the chance of the prostate could grow back and he may need further surgery or treatment in the future for prostate problems. Patient was taken back to the operating room, timeout procedure was performed, he was identified and marked and placed on the operating room table. He underwent general anesthesia. He was placed in dorsolithotomy position. Penis and testicles were prepped and draped in usual sterile fashion. Went into the bladder using the visual obturator with a resectoscope. Once inside the bladder identified the right and left ureteral orifice. I then identified the prostate and the anatomy of the prostate. I marked out the area of the sphincter and the verumontanum was identified. I then proceeded with the prostate resection first resected the median lobe. And then resected the right lobe of the prostate. Then to resect the left lobe of the prostate. I then resected the apical tissue of the prostate. This was a complete resection of all obstructive tissue to improve voiding and relieve obstruction. I then made sure that there was no injury to the sphincter or the verumontanum was still intact. At the end of the resection all the chips were Ellik out of the bladder. I then identified the left and right ureteral orifice and these were confirmed to be in good position and effluxing and not injured. The resectoscope was removed, a 22 Armenian catheter was placed into the bladder on continuous irrigation. And the urine was fairly light pink color and draining normally. He was taken back to the PACU in good condition. CPT 75787 Surgeon: Gregory Shaffer Type of Anesthesia: General Drains: 22fr [address] way
--- NOTE | 2022-05-09 14:23 | SUR.PHASEI ---
PATIENT C/O SHIVERS AND DEMEROL 12.5MG GIVEN IV PER WRITTEN ORDER.
[2022-05-09] MEDS: Ciprofloxacin 500 MG Tablet PO (19:55)
[2022-05-09] MEDS: Tamsulosin HCl 0.4 MG Capsule 0.8 MG PO (19:55)
[2022-05-09] MEDS: Pantoprazole Sodium 40 MG Tablet PO (19:55)
[2022-05-09] MEDS: Montelukast 10 MG Tablet PO (19:55)
[2022-05-09] MEDS: amLODIPine 10 MG Tablet PO (19:55)
[2022-05-10 03:20] VITALS: BP 106/63; PULSE 75; RESP 16; TEMP 36.9; O2SAT 94
[2022-05-10 07:20] VITALS: BMI 28.7
[2022-05-10 07:25] VITALS: BP 117/80; PULSE 93; RESP 16; TEMP 36.6; O2SAT 93
--- NOTE | 2022-05-10 09:16 | NURSING ---
pt voids 100 ml of very townsend red urine
--- NOTE | 2022-05-10 09:46 | CASEMGMT ---
Social Work SW met with pt and introduced self and role of SW. Pt states he does have a living will and HCPOA naming his Mary Grace Thomson. SW informed pt that documents are not on file and inquired if pts could bring them in when she comes to hospital today. Pt states he will call his and request forms be brought in. [employer]
--- NOTE | 2022-05-10 10:01 | PHA.DC.MR ---
Pharmacy Service has performed discharge medication reconciliation for this patient. The patient has no new medications at time of discharge review. Medications reviewed are from previously reported home medications. Home Medications coenzyme Q10 100 mg capsule (Co Q-10) 100 mg PO QHS 11/20/18 montelukast 10 mg tablet 10 mg PO QHS #90 tabs 09/01/21 amlodipine 10 mg tablet 10 mg PO QHS 04/05/22 pantoprazole 40 mg tablet,delayed release (Protonix) 40 mg PO QHS 04/05/22 ascorbic acid (vitamin C) 500 mg capsule 1,000 mg PO QHS 04/10/22 calcium carbonate 333 mg-magnesium oxide 133 mg-zinc sulf 5 mg tablet 1 tab PO DAILY 04/10/22 dywwvnyq-wak-fcjje acid 300 mcg-lycopene 600 mcg-lutein 300 mcg tablet (Centrum Silver Ultra Men's) 1 tab PO DAILY 04/10/22 omega-3 fatty acids 1,000 mg capsule 1,000 mg PO DAILY 04/10/22 tamsulosin 0.4 mg capsule 0.8 mg PO QHS 04/10/22 turmeric root extract 500 mg tablet 500 mg PO DAILY 04/10/22 vitamin B complex (B Complex-Vitamin B12 tablet) 1 tab PO DAILY 04/10/22 apixaban 5 mg tablet (Eliquis) 5 mg PO BID #60 tabs 04/24/22 The patient's discharge medication list was reviewed for discrepancies and discrepancies were resolved.
[2022-05-10] MEDS: Ciprofloxacin 500 MG Tablet PO (10:17)
== END 2022-05-10 12:15 | disposition home or self-care (01) ==
LOC: SDC 16:54 → MS3 16:54
PROVIDERS: Anesthesiology; Admitting Provider Urology; PCP Internal Medicine; Referring Provider Urology; Visit Provider Urology
PROC: (CPT 52601; principal; 2022-05-09 12:30)
DX: N40.1 Benign prostatic hyperplasia with lower urinary tract symptoms (principal); I48.91 Unspecified atrial fibrillation; I10 Essential (primary) hypertension; Z79.01 Long term (current) use of anticoagulants; E78.5 Hyperlipidemia, unspecified; N13.8 Other obstructive and reflux uropathy; K21.9 Gastro-esophageal reflux disease without esophagitis; Z79.899 Other long term (current) drug therapy; Z86.73 Personal history of transient ischemic attack (TIA), and cerebral infarction without residual deficits; R35.1 Nocturia; R39.14 Feeling of incomplete bladder emptying; R94.31 Abnormal electrocardiogram [ECG] [EKG]; I44.4 Left anterior fascicular block
CPT/HCPCS: 52601; 00914; 36415; 80048; 85027; 88305; 93005; 99218; J7120; G0378; J2405

== ENCOUNTER 2022-08-29 10:04 | Day surgery (SDC) | payer SELFPAY ==
[2022-08-29] VITALS (8 sets, daily range): BP systolic 105–136; BP diastolic 62–84; PULSE 66–77; RESP 16; TEMP 36.6–37.2; O2SAT 92–97; BMI 29.6
[2022-08-29] MEDS: Lactated Ringers 1,000 ML 15 ML IV (10:25)
--- NOTE | 2022-08-29 11:06 | PCM.HP.STD ---
HPI - General General Date of Admission: 08/29/22 Date of Service: 08/29/22 Chief Complaint: Dysphagia HPI Narrative AGNES RAMON, is a 66 M who presents for a follow-up endoscopy after undergoing emergent removal of a food impaction and discovered to have an esophageal ring. His esophageal dysphagia is better. He is not have any nausea. Did not have any vomiting. He denies any chest pain or shortness of breath. All other 16 review systems are negative except of her body mentioned HPI. [facility] Medical History (Updated 08/29/22 @ 11:[address] Hodges Friend, DO) Alcohol use Back pain Cardiology follow-up encounter Flu vaccine need Gastric reflux History of atrial fibrillation History of echocardiogram History of stress test History of TIA (transient ischemic attack) (01/10/17) Hyperlipidemia Hypertension Non-smoker Prostate disease Routine adult health maintenance TIA (transient ischemic attack) Home Medications coenzyme Q10 100 mg capsule (Co Q-10) 100 mg PO QHS 11/20/18 [History Last Taken Unknown] montelukast 10 mg tablet 10 mg PO QHS #90 tabs 09/01/21 [Rx Last Taken Unknown] amlodipine 10 mg tablet 10 mg PO QHS 04/05/22 [History Last Taken Unknown] pantoprazole 40 mg tablet,delayed release (Protonix) 40 mg PO QHS 04/05/22 [History Last Taken Unknown] ascorbic acid (vitamin C) 500 mg capsule 1,000 mg PO QHS 04/10/22 [History Last Taken Unknown] calcium carbonate 333 mg-magnesium oxide 133 mg-zinc sulf 5 mg tablet 1 tab PO DAILY 04/10/22 [History Last Taken Unknown] jfhtncqz-zgg-mbmby acid 300 mcg-lycopene 600 mcg-lutein 300 mcg tablet (Centrum Silver Ultra Men's) 1 tab PO DAILY 04/10/22 [History Last Taken Unknown] omega-3 fatty acids 1,000 mg capsule 1,000 mg PO DAILY 04/10/22 [History Last Taken Unknown] vitamin B complex (B Complex-Vitamin B12 tablet) 1 tab PO DAILY 04/10/22 [History Last Taken Unknown] apixaban 5 mg tablet (Eliquis) 5 mg PO BID #180 tabs 05/29/22 [Rx Last Taken 08/25/22] Allergy/AdvReac Type Severity Reaction Status Date / Time No Known Allergies Allergy Verified 08/29/22 10:38 Family History Mother Arthritis Father Heart disease Hypertension Cancer skin Grandmother CVA (cerebral vascular accident) Surgical History (Updated 08/27/22 @ 13:38 by Narda Dunham) H/O transurethral resection of prostate (05/09/22) History of orthopedic surgery Hx of esophagogastroduodenoscopy Social History Smoking Status: Never smoker alcohol intake: current alcohol intake frequency: holidays/special occasions only substance use type: does not use frequency: 3-4 times per week ROS Gastrointestinal Gastrointestinal: Reports dysphagia Vital Signs Vital Signs Vital Signs: 08/29/22 10:38 08/29/22 10:38 Temperature 98.1 F Temperature Source Temporal Pulse Rate 72 Respiratory Rate 16 Respiratory Pattern Normal Blood Pressure 136/84 H Blood Pressure Mean 101 Blood Pressure Source Monitor Blood Pressure Position Semi-Fowlers Blood Pressure Location Left Arm Pulse Ox 97 Oxygen Delivery Method Room Air Weight Weight: 218 lb 4.122 oz Body Mass Index (BMI) 29.6 Physical Exam Const alert General Appearance: cooperative Orientation / Consciousness: oriented to person HEENT hearing grossly normal bilaterally Head and Scalp: normal to inspection Face and Sinus: face symmetric Nose: external nose normal Mouth: oral and palatal mucosa normal Eyes conjunctivae normal General Eye: normal appearance of both eyes Neck full ROM General: normal visual inspection Lymph Lymphatic: no lymphadenopathy noted Chest inspection of chest normal and palpation of chest normal Chest: symmetrical chest wall rise Resp normal respiratory effort Effort and Inspection: able to speak in complete sentences Cardio regular rate GI non-distended Percussion: normal to percussion Rectal Exam: deferred Neuro Speech: speech normal Gait (Neuro): normal gait Assessment & Plan Assessment/Plan (1) Dysphagia: PLAN: He will undergo evaluation of his upper GI tract and dilation of his Schatzki's ring. He will undergo biopsies of his esophagus. He was explained alternatives, risk, benefits including outstanding bleeding, infection, sepsis, perforation, need for emergent . He will have an ASA of 1.
--- NOTE | 2022-08-29 11:15 | EGD_PTH ---
PATIENT: AGNES RAMON LOC: [facility] U#:[id number] AGE/SX: 66/M ROOM: RE08/29/[address]: Dr. Carroll Rodriguez DO : 1955 BED: DIS: 08/29/2022 SPEC #: [id number] RECD: 08/29/22 12:42 STATUS: JENNIFER RERavi #: [id number] MICHAEL: 08/29/22 11:[address]: Carroll Rodriguez DEPT: SURGICAL PATHOLOGY RECD BY: Soila Ruiz ENTERED: 08/29/22 13:30 SP TYPE: EGD BIOPSY OT DR: MD Rick Roy MD Tissues: Esophagus, NOS Procedures: Special Stain Group II Surgery Specimen Level IV Alcian Blue/PAS (control) HEADER OPERATION: EGD (MAC), biopsy, dilation PRE-OP DIAGNOSIS: Dysphagia TISSUE SUBMITTED: Distal esophagus biopsy MICROSCOPIC DIAGNOSIS Distal esophagus, biopsy: Gastroesophageal junction with chronic inflammation. Reflux esophagitis. No evidence of goblet cell metaplasia. See comment. AM:argenis 08/30/2022 COMMENT Alcian blue/PAS stain with matched control supports the above diagnosis. MICROSCOPIC DESCRIPTION Slides are reviewed. GROSS DESCRIPTION Received in fixative is one container labeled with the patient's name and designated distal esophagus biopsy. The specimen consists of multiple irregular fragments of light fowler soft tissue that in aggregate measure 1.5 x 0.5 x 0.1 cm. The specimen is totally submitted in one cassette. / SJ:argenis 08/29/2022 TC:3 CPT: 72855, 81677
--- NOTE | 2022-08-29 11:27 | OP.EGD_ITS ---
Patient Name: Johnny Thomson Procedure Date: 08/29/2022 11:11 AM Date of : 1955 Age: 66 Procedure: Upper GI endoscopy Indications: Dysphagia, Heartburn Providers: Carroll Rodriguez DO Referring MD: Carroll Rodriguez DO Medicines: Monitored Anesthesia Care Patient Profile: This is a 66 year old male. Refer to note in patient chart for documentation of history and physical. Patient has symptoms of chronic dysphagia and chronic heartburn. Complications: No immediate complications. Procedure: Pre-Anesthesia Assessment: - Prior to the procedure, a History and Physical was performed, and patient medications and allergies were reviewed. The patient is competent. The risks and benefits of the procedure and the sedation options and risks were discussed with the patient. All questions were answered and informed consent was obtained. Patient identification and proposed procedure were verified by the physician. Mental Status Examination: alert and oriented. Airway Examination: normal oropharyngeal airway and neck mobility. Respiratory Examination: clear to auscultation. CV Examination: normal. Prophylactic Antibiotics: The patient does not require prophylactic antibiotics. Prior Anticoagulants: The patient has taken no previous anticoagulant or antiplatelet agents. ASA Grade Assessment: II - A patient with mild systemic disease. After reviewing the risks and benefits, the patient was deemed in satisfactory condition to undergo the procedure. The anesthesia plan was to use monitored anesthesia care (MAC). Immediately prior to administration of medications, the patient was re-assessed for adequacy to receive sedatives. The heart rate, respiratory rate, oxygen saturations, blood pressure, adequacy of pulmonary ventilation, and response to care were monitored throughout the procedure. The physical status of the patient was re-assessed after the procedure. After obtaining informed consent, the endoscope was passed under direct vision. Throughout the procedure, the patient's blood pressure, pulse, and oxygen saturations were monitored continuously. The gastroscope was introduced through the anus and advanced to second part of duodenum. After obtaining informed consent, the endoscope was passed under direct vision. Throughout the procedure, the patient's blood pressure, pulse, and oxygen saturations were monitored continuously. The gastroscope was introduced through the mouth, and advanced to the second part of duodenum. The upper GI endoscopy was accomplished without difficulty. The patient tolerated the procedure well. Scope In: 11:12:01 AM Scope Out: 11:17:33 AM Total Procedure Duration Time 0 hours 5 minutes 32 seconds Findings: The Z-line was irregular and was found 40 cm from the incisors. Biopsies were taken with a cold forceps for histology. Verification of patient identification for the specimen was done. Estimated blood loss was minimal. A moderate Schatzki ring was found in the lower third of the esophagus. A guidewire was placed and the scope was withdrawn. Dilation was performed with a Savary dilator with no resistance at 60 Fr. The dilation site was examined following endoscope reinsertion and showed complete resolution of luminal narrowing. A small hiatal hernia was present. The entire examined stomach was normal. The first portion of the duodenum was normal. Impression: - Z-line irregular, 40 cm from the incisors. Biopsied. - Moderate Schatzki ring. Dilated. - Small hiatal hernia. - Normal stomach. - Normal first portion of the duodenum. Recommendation: - Written discharge instructions were provided to the patient. - The signs and symptoms of potential delayed complications were discussed with the patient. - Patient has a contact number available for emergencies. - Return to normal activities tomorrow. - Resume previous diet. - Continue present medications. - Await pathology results. Procedure Code(s): --- Professional --- 39034, Esophagogastroduodenoscopy, flexible, transoral; with insertion of guide wire followed by passage of dilator(s) through esophagus over guide wire 82049, 59,51, Esophagogastroduodenoscopy, flexible, transoral; with biopsy, single or multiple CPT copyright 2017 [employer]. All rights reserved. The codes documented in this report are preliminary and upon home health scheduler review may be revised to meet current compliance requirements. Carroll Rodriguez DO 08/29/2022 11:26:10 AM This report has been signed electronically. Number of Addenda: 0 Note Initiated On: 08/29/2022 11:11 AM
--- NOTE | 2022-08-29 11:27 | OP.CCLET_ITS ---
08/29/2022 Rick Cobos MD [address] [place] [address] [place] [address] Re : Upper GI endoscopy procedure for Johnny Thomson Dear Dr. Cobos This procedure was performed on Monday, August 29, 2022. My impressions and recommendations are as follows: Impressions : - Z-line irregular, 40 cm from the incisors. Biopsied. - Moderate Schatzki ring. Dilated. - Small hiatal hernia. - Normal stomach. - Normal first portion of the duodenum. Recommendations : - Written discharge instructions were provided to the patient. - The signs and symptoms of potential delayed complications were discussed with the patient. - Patient has a contact number available for emergencies. - Return to normal activities tomorrow. - Resume previous diet. - Continue present medications. - Await pathology results. My findings are described in the full procedure note, which is enclosed. If I can be of further assistance, please feel free to contact me at . Sincerely, Carroll Rodriguez, 08/29/2022 11:26:10 AM This report has been signed electronically.
== END 2022-08-29 12:07 | disposition home or self-care (01) ==
LOC: EN 10:13 → AC 10:14
PROVIDERS: PCP Internal Medicine; Referring Provider Internal Medicine; Visit Provider Internal Medicine Gastroenterology
PROC: 0DJ08ZZ Inspection of Upper Intestinal Tract, Via Natural or Artificial Opening Endoscopic (ICD-10-PCS; CPT 43235; principal; 2022-08-29 11:10)
DX: K21.00 Gastro-esophageal reflux disease with esophagitis, without bleeding (principal); I48.91 Unspecified atrial fibrillation; K22.2 Esophageal obstruction; K44.9 Diaphragmatic hernia without obstruction or gangrene; I10 Essential (primary) hypertension; Z86.73 Personal history of transient ischemic attack (TIA), and cerebral infarction without residual deficits; Z79.899 Other long term (current) drug therapy; Z79.01 Long term (current) use of anticoagulants
CPT/HCPCS: 43239; 43248; 88305; 88313; J7120; C1769; J2405

== ENCOUNTER → 2022-09-10 | Outpatient (CLI) | payer SELFPAY ==
[2022-09-10 11:50] LABS: Absolute Lymphocyte Count 1.45 X10^3/uL (0.83-4.51); Absolute Neutrophil Count 3.2 X10^3/uL (2.0-7.7); Basophil# 0.08 X10^3/uL; Basophil% 1.4 % (0-1); Eosinophil# 0.32 X10^3/uL; Eosinophils% 5.7 % (0-5); Hemoglobin 15.5 g/dL (13.0-16.5); Lymphocyte # 1.45 X10^3/ul (0.83-4.51); Lymphocyte % 25.8 % (19-41); Mean Corp Hgb Conc 33.7 g/dL (32-36); Mean Corpuscular Hgb 30.9 pg (27.0-32.0); Mean Corpuscular Volume 91.6 fL (80-94); Mean Platelet Vol. 9.8 fl (6.2-12.0); Monocyte# 0.52 X10^3/uL; Monocyte% 9.3 % (0-10); NRBC Flagged by Analyzer 0 % (0-5); Neutrophil # 3.21 X10^3/uL (2.7-7.7); Neutrophil % 57.3 % (47-70); Platelet Count 248 K/mm3 (150-450); RBC Distribution Width CV 12.4 % (11.6-14.6); RBC Distribution Width SD 41.8 fl (35.1-43.9); Red Blood Count 5.02 M/mm3 (4.6-6.2); White Blood Count 5.6 K/mm3 (4.4-11.0)
[2022-09-10 12:21] LABS: AST(SGOT) 21 U/L (15-37); Alanine Aminotransfer ALT/SGPT 35 U/L (16-61); Albumin, Serum 3.5 g/dL (3.2-5.0); Alkaline Phosphatase 73 U/L (45-117); Anion Gap 6 (5-15); BUN 21 mg/dL (7-18); BUN/Creat Ratio 19.8 RATIO (10-20); Calcium,Total 8.9 mg/dL (8.5-10.1); Chloride 109 mmol/L (98-107); Creatinine, Serum 1.06 mg/dL (0.70-1.30); EST Glomerular Filtration Rate 75 mL/min (>60); Est Glom Filt Rate - Afr Amer 90 mL/min (>60); Globulin 3.6 g/dL (2.2-4.2); Glucose 95 mg/dL (74-106); PSA,Total - Annual Screen 0.75 ng/mL (0.00-4.00); Potassium 3.6 mmol/L (3.5-5.1); Protein, Total 7.1 g/dL (6.4-8.2); Sodium Level 142 mmol/L (136-145)
== END | disposition home or self-care (01) ==
LOC: BIMLAB 09:31
PROVIDERS: PCP Internal Medicine; Visit Provider Internal Medicine
DX: I10 Essential (primary) hypertension (principal); N40.0 Benign prostatic hyperplasia without lower urinary tract symptoms
CPT/HCPCS: 36415; 80053; 84153; 85025; G0103

== ENCOUNTER → 2023-08-22 | Outpatient (CLI) | payer MEDICARE, OTHER, SELFPAY ==
[2023-08-22 17:14] LABS: Absolute Lymphocyte Count 1.34 X10^3/uL (0.83-4.51); Absolute Neutrophil Count 5.4 X10^3/uL (2.0-7.7); Basophil# 0.07 X10^3/uL; Basophil% 0.9 % (0-1); Eosinophil# 0.22 X10^3/uL; Eosinophils% 2.9 % (0-5); Hematocrit 46.6 % (40-54); Hemoglobin 15.6 g/dL (13.0-16.5); Lymphocyte # 1.34 X10^3/ul (0.83-4.51); Lymphocyte % 17.4 % (19-41); Mean Corp Hgb Conc 33.5 g/dL (32-36); Mean Corpuscular Hgb 30.6 pg (27.0-32.0); Mean Corpuscular Volume 91.4 fL (80-94); Mean Platelet Vol. 9.9 fl (6.2-12.0); Monocyte# 0.62 X10^3/uL; Monocyte% 8.1 % (0-10); NRBC Flagged by Analyzer 0 % (0-5); Neutrophil # 5.43 X10^3/uL (2.7-7.7); Neutrophil % 70.4 % (47-70); Platelet Count 239 K/mm3 (150-450); RBC Distribution Width CV 12.2 % (11.6-14.6); RBC Distribution Width SD 41.3 fl (35.1-43.9); White Blood Count 7.7 K/mm3 (4.4-11.0)
[2023-08-22 17:33] LABS: AST(SGOT) 23 U/L (15-37); Alanine Aminotransfer ALT/SGPT 30 U/L (16-61); Albumin, Serum 3.7 g/dL (3.2-5.0); Alkaline Phosphatase 85 U/L (45-117); Anion Gap 4 (5-15); BUN 19 mg/dL (7-18); BUN/Creat Ratio 15.2 RATIO (10-20); Chloride 106 mmol/L (98-107); Cholesterol 210 mg/dL (200); Creatinine, Serum 1.25 mg/dL (0.70-1.30); EST Glomerular Filtration Rate 61 mL/min (>60); Est Glom Filt Rate - Afr Amer 74 mL/min (>60); Globulin 3.7 g/dL (2.2-4.2); Glucose 91 mg/dL (74-106); High Density Lipoprotein 49 mg/dL; Potassium 4.2 mmol/L (3.5-5.1); Protein, Total 7.4 g/dL (6.4-8.2); Sodium Level 138 mmol/L (136-145); Triglycerides 151 mg/dL; Very Low Density Lipoprotein 30 mg/dL (5-40)
== END | disposition home or self-care (01) ==
LOC: BIMLAB 14:44
PROVIDERS: PCP Internal Medicine; Referring Provider Internal Medicine; Visit Provider Internal Medicine
DX: E78.2 Mixed hyperlipidemia (principal); I10 Essential (primary) hypertension; K21.9 Gastro-esophageal reflux disease without esophagitis
CPT/HCPCS: 36415; 80053; 80061; 85025

== ENCOUNTER → 2023-09-25 | Outpatient (CLI) | payer MEDICARE, OTHER, SELFPAY ==
[2023-09-25 13:06] LABS: PSA,Total - Annual Screen 1.02 ng/mL (0.00-4.00)
== END | disposition home or self-care (01) ==
LOC: BIMLAB 11:08
PROVIDERS: PCP Internal Medicine; Referring Provider Urology; Visit Provider Urology
DX: Z12.5 Encounter for screening for malignant neoplasm of prostate (principal)
CPT/HCPCS: 36415; 84153; G0103

== ENCOUNTER → 2024-08-28 | Outpatient (CLI) | payer MEDICARE, OTHER, SELFPAY ==
[2024-08-28 12:07] LABS: Absolute Lymphocyte Count 1.31 X10^3/uL (0.83-4.51); Basophil% 1.9 % (0-1); Eosinophil# 0.33 X10^3/uL; Eosinophils% 6.4 % (0-5); Hematocrit 46.2 % (40-54); Hemoglobin 15.3 g/dL (13.0-16.5); Lymphocyte # 1.31 X10^3/ul (0.83-4.51); Lymphocyte % 25.3 % (19-41); Mean Corp Hgb Conc 33.1 g/dL (32-36); Mean Corpuscular Hgb 30.6 pg (27.0-32.0); Mean Corpuscular Volume 92.4 fL (80-94); Mean Platelet Vol. 10.1 fl (6.2-12.0); Monocyte# 0.45 X10^3/uL; Monocyte% 8.7 % (0-10); NRBC Flagged by Analyzer 0 % (0-5); Neutrophil # 2.98 X10^3/uL (2.7-7.7); Neutrophil % 57.5 % (47-70); Platelet Count 248 K/mm3 (150-450); RBC Distribution Width CV 12.3 % (11.6-14.6); RBC Distribution Width SD 42.1 fl (35.1-43.9); White Blood Count 5.2 K/mm3 (4.4-11.0)
[2024-08-28 12:46] LABS: ALB/GLOB Ratio 1.1 RATIO (0.9-2.4); AST(SGOT) 19 U/L (15-37); Alanine Aminotransfer ALT/SGPT 23 U/L (16-61); Albumin, Serum 3.7 g/dL (3.2-5.0); Alkaline Phosphatase 83 U/L (45-117); Anion Gap 7 (5-15); BUN 13 mg/dL (7-18); BUN/Creat Ratio 10.9 RATIO (10-20); Calcium,Total 8.8 mg/dL (8.5-10.1); Chloride 108 mmol/L (98-107); Cholesterol 181 mg/dL (200); Creatinine, Serum 1.19 mg/dL (0.70-1.30); EST Glomerular Filtration Rate 65 mL/min (>60); Est Glom Filt Rate - Afr Amer 78 mL/min (>60); Globulin 3.4 g/dL (2.2-4.2); Glucose 108 mg/dL (74-106); High Density Lipoprotein 49 mg/dL; PSA,Total- Diagnostic 0.74 ng/mL (0.0-4.0); Potassium 3.9 mmol/L (3.5-5.1); Protein, Total 7.1 g/dL (6.4-8.2); Sodium Level 141 mmol/L (136-145); Triglycerides 80 mg/dL; Very Low Density Lipoprotein 16 mg/dL (5-40)
== END | disposition home or self-care (01) ==
LOC: BIMLAB 08:46
PROVIDERS: PCP Internal Medicine; Referring Provider Internal Medicine; Visit Provider Internal Medicine
DX: E78.2 Mixed hyperlipidemia (principal); I10 Essential (primary) hypertension; N40.0 Benign prostatic hyperplasia without lower urinary tract symptoms
CPT/HCPCS: 36415; 80053; 80061; 84153; 85025

== ENCOUNTER → 2024-10-19 | Outpatient (CLI) | payer MEDICARE, SELFPAY | END | disposition home or self-care (01) | PROVIDERS: PCP Internal Medicine; Referring Provider Urology; Visit Provider Urology | DX: N40.1 Benign prostatic hyperplasia with lower urinary tract symptoms (principal) | CPT/HCPCS: 36415; 84153; G0103 ==

== ENCOUNTER → 2024-12-03 | Outpatient (CLI) | payer MEDICARE, SELFPAY | END | disposition home or self-care (01) | LOC: SL 20:13 | PROVIDERS: PCP Internal Medicine; Referring Provider Internal Medicine; Visit Provider Internal Medicine | DX: G47.10 Hypersomnia, unspecified (principal) | CPT/HCPCS: 95810 ==